=== PATIENT | female | born 2000 | race Caucasian/White ===

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

== ENCOUNTER 2018-02-17 11:37 | Outpatient (CLI) | END 2018-02-17 14:15 | disposition home or self-care (01) ==

== ENCOUNTER 2018-03-16 17:00 | Inpatient (IN) | END 2018-03-18 14:05 | disposition home or self-care (01) | DRG 775 ==

== ENCOUNTER 2019-03-03 12:16 | Emergency (ER) | payer OTHER ==
[~2019-03-03] VITALS: Ht 162.6 cm; Wt 74.1 kg
[~2019-03-03 12:16] MED LIST changes: +CIPR500T4 PO; +ONDA4TAB14 PO
[2019-03-03 12:46] VITALS: BP 103/63; PULSE 89; RESP 20; Ht 162.6 cm; Wt 74.1 kg
[2019-03-03] MEDS ORDERED: ACETAMINOPHEN 500 MG TAB PO STA (13:39)
[2019-03-03] MEDS ORDERED: IBUPROFEN 800 MG TAB PO ONE (14:00)
--- NOTE | 2019-03-03 14:25 | ERD ---
ER Documentation Chief Complaint Chief Complaint headache, abdominal pain, vomitting x 1 day HPI 18-year-old female presenting with headache and abdominal pain and vomiting x1 day. Patient had a fever. She denies any chest pain or shortness of breath. Patient states she has some mild abdominal pain in the left lower pelvic area with no rebound tenderness. Denies changes in bowel movement. Denies other medical problems. NKDA. Surgical history denies. Social history denies ROS All systems reviewed and are negative except as per history of present illness. Medications Home Meds Active Scripts Ondansetron (Ondansetron Odt) 4 Mg Tab.rapdis, 4 MG PO Q6H PRN for NAUSEA AND/OR VOMITING, #10 TAB Prov:SASHA CARCAMO PA-C 03/03/19 Ciprofloxacin Hcl* (Ciprofloxacin Hcl*) 500 Mg Tablet, 500 MG PO BID for 10 Days, TAB Prov:SASHA CARCAMO PA-C 03/03/19 Reported Medications [Inhaler For Asthma] No Conflict Check, PRN for SHORTNESS OF BREATH 11/18/16 Multivit/Min/Fol Ac/Iron/Pren* ( S*) 1 Tab Tab, 1 TAB PO DAILY, TAB 11/18/16 Allergies Allergies: Coded Allergies: No Known Allergy (Unverified , 11/18/16) PMhx/Soc Medical and Surgical Hx: pt denies Medical Hx, pt denies Surgical Hx Hx Alcohol Use: No Hx Substance Use: No Hx Tobacco Use: No Smoking Status: Never smoker FmHx Family History: No diabetes, No coronary disease, No other Physical Exam Vitals Vital Signs Date Temp Pulse Resp B/P (MAP) Pulse Ox O2 O2 Flow FiO2 Time Delivery Rate 03/03/19 100.8 89 20 103/63 99 12:46 (76) Physical Exam GENERAL: The patient is well-appearing, well-nourished, in no acute distress HEENT: Atraumatic. Conjunctivae are pink. Pupils equal, round, and reactive to light. There is no scleral icterus. Tympanic membranes clear bilaterally. Oropharynx clear. CHEST: Clear to auscultation bilaterally. There are no rales, wheezes or rhonchi. HEART: Regular rate and rhythm. No murmurs, clicks, rubs or gallops. No S3 or S4. ABDOMEN:Soft, nontender and nondistended. Good bowel sounds. No rebound or guarding. No gross peritonitis. No gross organomegaly or masses. Results 24 hrs Laboratory Tests Test 03/03/19 14:14 03/03/19 14:15 POC Beta HCG, Qualitative NEGATIVE Bedside Urine pH (LAB) 8.5 Bedside Urine Protein (LAB) 2+ Bedside Urine Glucose (UA) Negative Bedside Urine Ketones (LAB) 3+ Bedside Urine Blood Trace-intact Bedside Urine Nitrite (LAB) Negative Bedside Urine Leukocyte Esterase (L 2+ Current Medications Medications Dose Sig/Tati Start Time Status Last (Trade) Ordered Route PRN Stop Time Admin Dose Reason Admin 1,000 mg ONCE STAT 03/03/19 DC 03/03/19 Acetaminophen PO 13:39 14:06 (Tylenol 03/03/19 13:40 Tab) Ibuprofen 800 mg ONCE ONCE 03/03/19 DC 03/03/19 (Motrin) PO 14:00 14:06 03/03/19 14:01 Procedures/MDM ER course: Urinalysis positive for infection. MDM: 18-year-old female presenting with fever vomiting and findings consistent with urinalysis. Patient is able to jump up and down without peritoneal signs. Patient's HEENT exam is within normal limits. Patient's urine shows signs of infection however does not have CVA tenderness I have low suspicion for pyelonephritis. Patient will be treated antibiotic treatment for potential Rj given she has a fever however that may just be viral syndrome. Patient is discharged with strict ER precautions and told to follow-up with primary care within 1 to 2 days for close evaluation. Patient is told if symptoms change or worsen to return immediately to the ER. All questions answered at discharge Departure Diagnosis: Primary Impression: UTI (urinary tract infection) Condition: Stable Patient Instructions: Understanding Urinary Tract Infections (UTIs) Referrals: COMMUNITY CLINICS YOU HAVE RECEIVED A MEDICAL SCREENING EXAM AND THE RESULTS INDICATE THAT YOU DO NOT HAVE A CONDITION THAT REQUIRES URGENT TREATMENT IN THE EMERGENCY DEPARTMENT. FURTHER EVALUATION AND TREATMENT OF YOUR CONDITION CAN WAIT UNTIL YOU ARE SEEN IN YOUR DOCTORS OFFICE WITHIN THE NEXT 1-2 DAYS. IT IS YOUR RESPONSIBILITY TO MAKE AN APPOINTMENT FOR FOLOW-UP CARE. IF YOU HAVE A PRIMARY DOCTOR --you should call your primary doctor and schedule an appointment IF YOU DO NOT HAVE A PRIMARY DOCTOR YOU CAN CALL OUR PHYSICIAN REFERRAL HOTLINE AT IF YOU CAN NOT AFFORD TO SEE A PHYSICIAN YOU CAN CHOSE FROM THE FOLLOWING [facility] [address] [facility] [address] [facility] [address] [facility] [address] [facility]. [facility] [address] [facility]. [facility] [address] Additional Instructions: FOLLOW UP WITH YOUR PRIMARY CARE PHYSICIAN TOMORROW.Return to this facility if you are not improving as expected. SASHA CARCAMO PA-C Mar 03, 2019 14:25
== END 2019-03-03 14:42 | disposition home or self-care (01) ==
LOC: FTE 12:16
DX: R10.2 Pelvic and perineal pain (principal)
CPT/HCPCS: 81003; 81025; 87086; Z7502; Z7610; 99283